=== PATIENT | male | born 1990 | race Caucasian/White ===

== ENCOUNTER 2019-08-07 19:16 | Emergency (ER) | payer BC ==
[~2019-08-07] VITALS: Ht 170.2 cm; Wt 90.7 kg
[2019-08-07 19:16] VITALS: BP 156/104
== END 2019-08-07 20:20 | disposition home or self-care (01) ==
LOC: ER 19:16
DX: R50.9 Fever, unspecified (principal); R05 Cough; Z20.828 Contact with and (suspected) exposure to other viral communicable diseases

== ENCOUNTER 2020-06-20 21:44 | Emergency (ER) | payer OTHER ==
[~2020-06-20] VITALS: Ht 170.2 cm; Wt 92.1 kg
--- NOTE | 2020-06-20 22:00 | NUR ---
C/O INTERMITTENT MID STERNAL CP X 3 DAYS. WORSE ON DEEP BREATHING. CURRENTLY 07/29, ALSO W/ C/O HIGH HEART RATE, - FOR PCR COVID TEST 06/17
[2020-06-20] MEDS ORDERED: ASPIRIN 81 MG TAB.CHEW ONE (22:30)
[2020-06-20] MEDS ORDERED: LIDOCAINE VISCOUS 2% UD 15 ML UDC ONE (22:30)
[2020-06-20] MEDS ORDERED: MAG HYDROX/AL HYDROX/SIMETH 30 ML UDC PO ONE (22:30)
[2020-06-20] MEDS: DICYCLOMINE HCL 10 MG/5 ML UDC PO ONE ×2 (22:30→22:38)
[2020-06-20] MEDS ORDERED: LIDOCAINE VISCOUS 2% UD 15 ML UDC MM ONE (22:30)
[2020-06-20] MEDS ORDERED: ASPIRIN 81 MG TAB.CHEW PO ONE (22:30)
[2020-06-20] MEDS ORDERED: MAG HYDROX/AL HYDROX/SIMETH 30 ML UDC ONE (22:30)
[2020-06-20 22:41] LABS: BASOPHILS # (AUTO) 0.1 /CMM (0.0-0.2); BASOPHILS % (AUTO) 0.5 % (0.0-2.0); EOSINOPHILS % (AUTO) 0.3 % (0.0-6.0); HEMATOCRIT 47 % (39-51); HEMOGLOBIN 15.7 g/dL (13.5-17.5); LYMPHOCYTES # (AUTO) 2.9 /CMM (0.8-4.8); LYMPHOCYTES % (AUTO) 22.1 % (20.0-44.0); MEAN CORPUSCULAR HGB CONC 33 g/dl (31.0-36.0); MEAN CORPUSCULAR VOLUME 85 fL (80-96); MONOCYTES # (AUTO) 0.6 /CMM (0.1-1.30); MONOCYTES % (AUTO) 4.9 % (2.0-12.0); NEUTROPHILS # (AUTO) 9.5 /CMM (1.8-8.9); NEUTROPHILS % (AUTO) 72.2 % (43.0-81.0); PLATELET COUNT (AUTO) 272 /CMM (150-450); RED BLOOD CELL COUNT(AUTO) 5.55 MIL/uL (4.5-6.0); WHITE BLOOD COUNT (AUTO) 13.2 K/uL (4.3-11.0)
[2020-06-20 22:52] LABS: CALCIUM, SERUM 9.2 mg/dL (8.5-10.1); CARBON DIOXIDE 24 mmol/L (21-32); CHLORIDE 104 mmol/L (98-107); GLUCOSE 113 mg/dL (74-106); POTASSIUM 3.8 mmol/L (3.5-5.1); SODIUM SERUM 140 mmol/L (136-145); UREA NITROGEN, BLOOD 24 mg/dL (7-18)
[2020-06-20 23:05] LABS: ALANINE AMINOTRANSFERASE 31 U/L (12-78); ALBUMIN 4.3 g/dL (3.4-5.0); ALKALINE PHOSPHATASE 105 U/L (46-116); ASPARTATE AMINOTRANSFERASE 22 U/L (15-37); BILIRUBIN,DIRECT 0.1 mg/dL (0.0-0.2); BILIRUBIN,TOTAL 0.2 mg/dL (0.2-1.0); TOTAL PROTEIN, SERUM 7.8 g/dL (6.4-8.2)
[2020-06-20 23:10] LABS: B-TYPE NATRIURETIC PEPTIDE 5 PG/ML (0-125)
--- NOTE | 2020-06-21 03:36 | NUR ---
PT IS MEDICALLY STBLE FOR D/C. IV removed. Catheter intact and site benign. Pressure and 4x4 applied to site. No bleeding noted.Patient discharged to home in stable condition. Rx and Written and verbal after care instructions given. Patient verbalizes understanding of instruction.
[2020-06-21 03:46] VITALS: BP 126/66
== END 2020-06-21 03:30 | disposition home or self-care (01) ==
LOC: ER 21:46
DX: R07.89 Other chest pain (principal); R00.0 Tachycardia, unspecified; Z90.89 Acquired absence of other organs
CPT/HCPCS: 36415; 71045-TC; 80048-TC; 80076-TC; 83880; 84484-TC; 85025-TC; 85378-TC